=== PATIENT | female | born 1990 | race African-American/Black ===

== ENCOUNTER 2017-08-08 16:41 | Emergency (ER) | payer BC, SELFPAY ==
[2017-08-08] MEDS ORDERED: Ketorolac Tromethamine 60 MG/2 ML VIAL ONE (18:35)
== END 2017-08-08 18:54 | disposition home or self-care (01) ==
LOC: ERS 16:41
DX: R51 Headache (principal); R21 Rash and other nonspecific skin eruption; F41.9 Anxiety disorder, unspecified
CPT/HCPCS: 64505; 96372; J1885

== ENCOUNTER 2017-09-12 08:18 | Emergency (ER) | payer BC | END 2017-09-12 09:53 | disposition home or self-care (01) | LOC: ERS 08:18 | DX: H60.91 Unspecified otitis externa, right ear (principal); E66.9 Obesity, unspecified; F41.9 Anxiety disorder, unspecified | CPT/HCPCS: 99282 ==